=== PATIENT | female | born 1950 ===

== ENCOUNTER → 2020-12-15 | Outpatient (CLI) | payer OTHER ==
[~2020-12-15] MED LIST: CLARITIN10 MG PO; ELIMITE 5% CREA60 GM TOP; KENALOG 0.5% CR15 GM EXT
== END ==
LOC: KOH-I 09:04
DX: K75.81 Nonalcoholic steatohepatitis (NASH) (principal)
CPT/HCPCS: 76705

== ENCOUNTER → 2022-01-31 | Outpatient (CLI) | payer OTHER ==
[2022-01-31 17:12] LABS: BUN/CREATININE RATIO 19 (0-10)
== END ==
LOC: LAB 15:57
PROVIDERS: Nurse Practitioner Family
DX: R42 Dizziness and giddiness (principal)
CPT/HCPCS: 36415; 80048

== ENCOUNTER → 2022-02-11 | Outpatient (CLI) | payer OTHER | LOC: KOH-I 02-05 16:00 | DX: R55 Syncope and collapse (principal); I65.23 Occlusion and stenosis of bilateral carotid arteries | CPT/HCPCS: 93880 ==

== ENCOUNTER → 2022-02-13 | Outpatient (CLI) | payer OTHER | LOC: CT 08:22 | DX: R42 Dizziness and giddiness (principal) | CPT/HCPCS: 70470; Q9967 ==

== ENCOUNTER → 2022-04-05 | Outpatient (CLI) | payer OTHER | LOC: EXRD 08:48 | DX: M79.604 Pain in right leg (principal) | CPT/HCPCS: 93971 ==